=== PATIENT | male | born 1935 | race Caucasian/White ===

== ENCOUNTER 2016-11-08 15:31 | Emergency (ER) | payer MEDICARE, BC ==
[2015-12-14 13:42] VITALS: BMI 23.0
[~2016-11-08 15:31] MED LIST: ASPIRIN81 MG PO; AUGMENTIN 875-11 TAB PO; PHENERGAN25 MG/ML IM; PLAVIX75 MG PO; PROTONIX40 MG PO
[2016-11-08 17:04] LABS: BASOPHILS 0.3 % (0.0-2.0); EOSINOPHILS 0.7 % (0-7); HEMATOCRIT 47.2 % (42.0-54.0); HEMOGLOBIN 15.9 g/dL (13.5-17.5); IMMATURE GRANULOCYTES 0.5 % (0-5); LYMPHOCYTES 12.5 % (15-50); MCH 32.6 pg (26.0-34.0); MCHC 33.7 g/dL (31.0-37.0); MCV 96.9 fL (80.0-100.0); MEAN PLATELET VOLUME 10.5 fL (7.4-10.4); MONOCYTES 8.4 % (2-11); NEUTROPHILS 77.6 % (40-80); PLATELET COUNT 186 10x3/uL (130-400); RBC 4.87 10x6/uL (4.20-6.10); RDW 12.6 % (11.5-14.5); WBC 10.7 10x3/uL (4.8-10.8)
[2016-11-08 17:13] LABS: INR 1.05 (0.85-1.17); PROTIME 13.6 SECONDS (11.6-15.0)
[2016-11-08 17:21] LABS: ALBUMIN 3.4 g/dL (3.4-5.0); ALKALINE PHOSPHATASE 101 U/L (46-116); ALT (SGPT) 18 U/L (10-68); BILIRUBIN - TOTAL 0.41 mg/dL (0.2-1.3); CALC OSMOLALITY 279 mosm/kg (275-300); CALCIUM 8.7 mg/dL (8.5-10.1); CARBON DIOXIDE 28.7 mmol/L (21.0-32.0); CHLORIDE - SERUM 104 mmol/L (98-107); CREATININE - SERUM 1.2 mg/dL (0.6-1.3); GLUCOSE 117 mg/dL (74-106); POTASSIUM - SERUM 3.9 mmol/L (3.5-5.1); PROTEIN - SERUM 6.9 g/dL (6.4-8.2); SODIUM 139 mmol/L (136-145); UREA NITROGEN 16 mg/dL (7-18); eGFR NON AFRICAN AMERICAN 62 mL/min (90-120)
[2016-11-08 17:29] LABS: APPEARANCE CLEAR (CLEAR); BILIRUBIN NEGATIVE (NEGATIVE); COLOR YELLOW (YELLOW); GLUCOSE NEGATIVE (NEGATIVE); KETONE NEGATIVE (NEGATIVE); LEUKOCYTE ESTERASE NEGATIVE (NEGATIVE); NITRITE NEGATIVE (NEGATIVE); PROTEIN NEGATIVE (NEGATIVE); UROBILINOGEN NORMAL (NORMAL)
[2016-11-08 17:33] LABS: CREATINE KINASE 55 UL (21-232); PRO BNP 250 pg/mL (0-450); TROPONIN-I < 0.017 ng/mL (0.000-0.060)
[2016-11-08 17:48] LABS: HEMOGLOBIN A1C 5.6 % (4.8-6.0)
== END 2016-11-08 20:20 | disposition home or self-care (01) ==
LOC: D.ER 15:31
PROVIDERS: Nurse Practitioner Family
DX: R42 Dizziness and giddiness (principal); Z86.73 Personal history of transient ischemic attack (TIA), and cerebral infarction without residual deficits

== ENCOUNTER 2017-04-24 18:33 | Inpatient (IN) | payer MEDICARE, BC ==
[~2017-04-24] VITALS: Ht 182.9 cm; Wt 80.7 kg
--- NOTE | ~2017-04-24 | CN ---
PATIENT NAME:JONATHON NORRIS MEDICAL RECORD: [id number] : 39 LOCATION:D. D.2123 ADMIT DATE: 04/25/17 ACCOUNT: [id number] CONSULTING PHYSICIAN: KAM STEWARD MD REFERRING PHYSICIAN: VANESSA EDMONDS MD DATE OF CONSULTATION: 04/25/2017 Cardiology Consultation DIAGNOSES: 1. Transient ischemic attack. 2. History of transient ischemic attacks. 3. Valvular heart disease, mitral regurgitation. HISTORY OF PRESENT ILLNESS: Mr. Norris was admitted with right-sided weakness. This has resolved. He has a history of TIAs for which he was on Plavix. Dr. Forde has seen him suggested adding aspirin to the Plavix. He has had heart rates in the 50s, but no significant bradycardia. No chest pain, no chest discomfort. Troponin is normal. PHYSICAL EXAMINATION: GENERAL APPEARANCE: Well-nourished, well-developed, appears stated age. Level of distress, comfortable. PSYCHIATRIC: Mental status, alert, normal affect. Orientation, oriented to time, place and person. EYES: Lids and conjunctiva, noninjected. No discharge, no pallor. ENT: Lips, teeth, gums, normal dentition. Oropharynx, no cyanosis, no pallor. NECK: Carotid arteries, bilateral normal upstroke, no bruits, no thrills. JUGULAR VEINS: No jugular venous pressure or distention. CERVICAL LYMPH NODES: Nontender, nonenlarged. THYROID: Not enlarged. Nontender. No nodules. LUNGS: Respiratory effort, unlabored. CHEST: Normal curvature. No thoracic deformity. No chest wall tenderness. Percussion, resonant. Auscultation, clear. No wheezes, no rales, no rhonchi. CARDIOVASCULAR: Precordial exam, nondisplaced. No heaves or pericardial thrills. Rate and rhythm, regular. Heart sounds, normal S1, normal S2. No S3, no gallop, no rub. Systolic murmur, not heard. Diastolic murmur, not heard. EXTREMITIES: No cyanosis, no edema. Peripheral pulses, full and equal in all extremities, except as noted. No bruits appreciated. ABDOMEN: Soft, nondistended. Normal aorta. No bruit. Nontender. No masses. Liver, nontender, no hepatomegaly. Spleen, nontender, no splenomegaly. MUSCULOSKELETAL: No joint tenderness. No joint swelling. No erythema. NEUROLOGICAL: Normal gait, normal strength, normal tone. SKIN: Warm and dry. Echocardiogram was performed. He has not had a cardiac source nor neurologic emboli in the past. Most likely this is just TIA from a primary thrombotic event. I agree with adding the aspirin to the Plavix. We will check the echocardiogram, no other cardiac workup or treatment is necessary. TRANSINT:[id number] Voice Confirmation ID: [id number] DOCUMENT ID: [id number] CONSULT REPORT [id number] JONATHON NORRIS JEFFREY MD CC: [id number] DICTATION DATE: 04/25/17 1504 HOME WEATHERIZING WORKER: 04/25/171958 ADM IN [place] [id number] [place] [id number]
--- NOTE | ~2017-04-24 | EC ---
PATIENT:RALJESSICA,JONATHON DATE OF SERVICE: 04/25/17 SEX: M MEDICAL RECORD: [id number] DATE OF : 39 LOCATION:D.M2 D.212 AGE OF PATIENT: 82 ADMISSION DATE: 04/25/17 REFERRING PHYSICIAN: INTERPRETING PHYSICIAN: KAM HOLLOWAY MD ECHOCARDIOGRAM REPORT ECHO CHARGES 4 ECHO COMPLETE CLINICAL DIAGNOSIS: LEFT MCA TIA ECHOCARDIOGRAPHIC MEASUREMENTS (adult normal given) AC root (d.<3.7cm) 4.4 cm LV Septum d (<1.2 cm> 1.3 cm Valve Excursion 2.6 cm LV Septum (systole) 2.2 cm Left Atria (s.<4.0cm> 3.5 cm LVPW d(<1.2cm) 1.2 cm RV (d.<2.3cm) 2.5 cm LVPW (sytole) 2.0 cm LV diastole(<5.6CM) 5.5 cm MV E-F(>70mm/sec) cm LV systole 2.6 cm LVOT Diameter 2.2 cm MV exc.(>10mm) cm Est.ejection fraction (50-75%) % Pericardial Effusion N DOPPLER: LVIT cm/sec A 100 cm/sec E 50.0 cm/sec LA cm/sec RVSP 30.1 mmHg LVOT 131 cm/sec AOP1/2T m/s Asc. Ao 131 cm/sec RVOT 65.0 cm/sec RA cm/sec PA 95.0 cm/sec AV Gradient Peak 6.9 mmHg AV Mean 3.3 mmHg AV Area 3.5 cm MV Gradient Peak 4.2 mmHg MV Mean 1.3 mmHg MV Area cm COMMENTS: Handwriting Expert: Mirlande VALLADARESOE Ultrasound Tester: 1 Dr. Holloway TAPE# PACS DATE OF SERVICE: 04/26/2017 Echocardiogram FINDINGS: 1. Left ventricular chamber size is within normal limits. Left ventricular systolic function is normal. Overall ejection fraction estimated at 55%. 2. Left atrium, right atrium, and right ventricle chamber sizes are within normal limits. 3. Valvular structures have normal structure and motion. ECHOCARDIOGRAM REPORT [id number] RALSTIN,JONATHON 4. Doppler interrogation only reveals mild aortic insufficiency. No other valvular insufficiency or stenosis. Pulmonary systolic pressure is normal estimated at 30 mmHg. 5. No evidence of pericardial effusion or left ventricular thrombus. TRANSINT:[id number] Voice Confirmation ID: [id number] DOCUMENT ID: [id number] KAM HOLLOWAY MD CC: [id number] DICTATION DATE: 04/26/17 1229 FOLLOW UP CLERK: 04/26/172003 DIS IN 04/26/17 [facility] [address] [place] [id number]
[2017-04-24 19:01] LABS: EOSINOPHILS 3.9 % (0-7); HEMATOCRIT 47.4 % (42.0-54.0); HEMOGLOBIN 16.4 g/dL (13.5-17.5); IMMATURE GRANULOCYTES 0.7 % (0-5); LYMPHOCYTES 45.4 % (15-50); MCH 33.4 pg (26.0-34.0); MCHC 34.6 g/dL (31.0-37.0); MCV 96.5 fL (80.0-100.0); MEAN PLATELET VOLUME 10.5 fL (7.4-10.4); MONOCYTES 11.6 % (2-11); NEUTROPHILS 37.4 % (40-80); PLATELET COUNT 187 10x3/uL (130-400); RBC 4.91 10x6/uL (4.20-6.10); RDW 12.9 % (11.5-14.5)
[2017-04-24 19:33] LABS: APTT 25.5 SECONDS (22.8-39.4)
[2017-04-24 19:37] LABS: ALBUMIN 3.3 g/dL (3.4-5.0); ANION GAP 12.7 mmol/L (8-16); BILIRUBIN - TOTAL 0.4 mg/dL (0.2-1.3); CALCIUM 8.2 mg/dL (8.5-10.1); CARBON DIOXIDE 27.5 mmol/L (21.0-32.0); CREATININE - SERUM 1.2 mg/dL (0.6-1.3); POTASSIUM - SERUM 4.2 mmol/L (3.5-5.1); PROTEIN - SERUM 6.7 g/dL (6.4-8.2)
[2017-04-24 19:58] LABS: CKMB 0.2 U/L (0.0-3.6); CREATINE KINASE 59 UL (21-232)
[2017-04-24 20:00] LABS: TROPONIN-I < 0.017 ng/mL (0.000-0.060)
[2017-04-24 21:38] LABS: CREATINE KINASE 133 UL (21-232)
[2017-04-24 21:46] LABS: TROPONIN-I < 0.017 ng/mL (0.000-0.060)
--- NOTE | 2017-04-24 22:00 | NUR ---
PT ARRIVES FROM ER VIA STRETCHER, GETS OOB WITH SBA ONLY - AMBULATES WITH A STEADY GAIT TO THE BATHROOM AND THEN INTO BED. NO NEURO DEFICITS NOTED UPON ASSESSMENT. VSS, AFEBRILE. ADMISSION HISTORY AND ASSESSMENT COMPLETED. UNIT ROUTINES AND PROTOCOLS DISCUSSED, PT VERBALIZES UNDERSTANDING. WILL CONT TO MONITOR.
[2017-04-24 22:19] VITALS: BMI 25.1
[2017-04-24 23:05] LABS: APPEARANCE CLEAR (CLEAR); COLOR YELLOW (YELLOW)
[2017-04-24 23:06] LABS: BILIRUBIN NEGATIVE (NEGATIVE); GLUCOSE NEGATIVE (NEGATIVE); KETONE NEGATIVE (NEGATIVE); LEUKOCYTE ESTERASE NEGATIVE (NEGATIVE); NITRITE NEGATIVE (NEGATIVE); PROTEIN NEGATIVE (NEGATIVE); UROBILINOGEN NORMAL (NORMAL)
[2017-04-25 01:39] VITALS: BP 166/93
[2017-04-25 05:01] LABS: CKMB 2.9 U/L (0.0-3.6); CREATINE KINASE 186 UL (21-232)
[2017-04-25 05:02] LABS: TROPONIN-I < 0.017 ng/mL (0.000-0.060)
[2017-04-25 05:32] VITALS: BP 149/85
--- NOTE | 2017-04-25 06:57 | NUR ---
PT RESTS WELL THIS SHIFT. NO CHANGES NOTED IN NEURO STATUS. WILL MONITOR.
[2017-04-25 09:38] VITALS: BP 168/84
--- NOTE | 2017-04-25 10:00 | NUR ---
RESP UL ON . AT BS. CALL LIGHT IN REACH. WILL CONT. PLAN OF CARE.
[2017-04-25 10:39] LABS: CKMB 1.8 U/L (0.0-3.6); CREATINE KINASE 171 UL (21-232)
[2017-04-25 10:41] LABS: TROPONIN-I < 0.017 ng/mL (0.000-0.060)
[2017-04-25 12:17] VITALS: BP 147/80
[2017-04-25 16:00] VITALS: BP 124/83
--- NOTE | 2017-04-25 17:26 | NUR ---
WITHOUT CHANGES OR DISTRESS NOTED AT THIS TIME. DENIES NEEDS.
--- NOTE | 2017-04-25 19:00 | NUR ---
RECEIVED REPORT AND ASSUMED PT CARE FROM DAY SHIFT NURSE @ THIS TIME.
[2017-04-25 20:00] VITALS: BP 158/87
--- NOTE | 2017-04-25 20:15 | NUR ---
SHIFT ASSESSMENT COMPLETED, VSS, AFEBRILE. CONT TO BE WITHOUT NEURO DEFICITS NOTED. call light within reach. will monitor
[2017-04-26] VITALS: BP 127/75
[2017-04-26 05:24] VITALS: BP 156/84
[2017-04-26 05:48] LABS: BASOPHILS 0.3 % (0-2); EOSINOPHILS 4.1 % (0-7); HEMATOCRIT 46.8 % (42.0-54.0); HEMOGLOBIN 15.9 g/dL (13.5-17.5); IMMATURE GRANULOCYTES 0.2 % (0-5); LYMPHOCYTES 26.1 % (15-50); MCV 97.1 fL (80.0-100.0); MEAN PLATELET VOLUME 10.3 fL (7.4-10.4); MONOCYTES 14.1 % (2-11); NEUTROPHILS 55.2 % (40-80); PLATELET COUNT 181 10x3/uL (130-400); RBC 4.82 10x6/uL (4.20-6.10); RDW 12.8 % (11.5-14.5); WBC 6.1 10x3/uL (4.8-10.8)
[2017-04-26 06:05] LABS: CALCIUM 8.2 mg/dL (8.5-10.1); CARBON DIOXIDE 30.1 mmol/L (21.0-32.0); CREATININE - SERUM 1.3 mg/dL (0.6-1.3); POTASSIUM - SERUM 4.1 mmol/L (3.5-5.1)
--- NOTE | 2017-04-26 07:38 | NUR ---
ASSESSMENT DONE. DENIES NEEDS.
[2017-04-26 08:00] VITALS: BP 162/94
--- NOTE | 2017-04-26 09:24 | NUR ---
UP IN CHAIT WITH CALL LIGHT IN REACH. WILL MONITOR NEEDS.
[2017-04-26 11:52] VITALS: BP 133/69
[2017-04-26] MEDS ORDERED: ASPIRIN81 MG PO (13:01)
[2017-04-26 13:03] VITALS: Ht 182.9 cm; Wt 80.7 kg
--- NOTE | 2017-04-26 14:04 | NUR ---
DC GIVEN TO PT
--- NOTE | 2017-04-26 14:11 | NUR ---
DC HOME PER PERSONAL CAR
--- NOTE | 2017-04-26 16:35 | NUR ---
Patient Name: JONATHON SHEEHAN Admission Status: ER Accout number: [id number] Admission Date: 04-25-2017 : 1935 Admission Diagnosis:TRANSIENT CEREBRAL ISCHEMIC ATTACK, UNSPECIFIED Attending: ADRIÁN Current LOS: 1 Anticipated DC Date: 04-26-2017 Planned Disposition: Home Primary Insurance: MEDICARE A & B LATE ENTRY: Discharge Planning Comments: * Is the patient Alert and Oriented? Yes 0 * How many steps to enter\exit or inside your home? NONE 0 * PCP DR. DELANEY 0 * Pharmacy [facility] BY MARLENI BARNETT 0 * Preadmission Environment Home with Family 0 * ADLs Independent 0 * Equipment None 0 * Other Equipment NO MEDICAL EQUIPMENT PROVIDER PREFERENCE 0 * List name and contact numbers for known caregivers / representatives who currently or will assist patient after discharge: MICHI SHEEHAN, SPOUSE, 0 * Community resources currently utilized None 0 * Please name any agencies selected above. NONE 0 * Additional services required to return to the preadmission environment? No 0 * Can the patient safely return to the preadmission environment? Yes 0 * Has this patient been hospitalized within the prior 30 days at any hospital? No 0 CM MET WITH PT AND SPOUSE IN ROOM TO DISCUSS DISCHARGE PLANNING AND NEEDS. PT REPORTS LIVING AT HOME INDEPENDENTLY WITH SPOUSE. PT HAS NO MEDICAL EQUIPMENT AND NO OUTSIDE SERVICES ASSISTING IN THE HOME. CM DISCUSSED AVAILABILITY OF HOME HEALTH, REHAB SERVICES AND MEDICAL EQUIPMENT. PT DENIES DISCHARGE NEEDS, REPORTS HIS IS HERE TO PICK HIM UP FOR DISCHARGE HOME. Golf Course Laborer: Cameron Portillo
== END 2017-04-26 14:12 | disposition home or self-care (01) | DRG 68 ==
LOC: D.ER 18:33 → OBSVTIME 21:10 → D.M2 21:10 → D.SDCHOLD 04-25 17:10 → D.M2 04-25 17:12
PROVIDERS: Emergency Medicine; Family Medicine; ADMIT Family Medicine
DX: I66.02 Occlusion and stenosis of left middle cerebral artery (principal); G81.94 Hemiplegia, unspecified affecting left nondominant side; S06.0X9A Concussion with loss of consciousness of unspecified duration, initial encounter; I34.0 Nonrheumatic mitral (valve) insufficiency; W07.XXXA Fall from chair, initial encounter; Z86.73 Personal history of transient ischemic attack (TIA), and cerebral infarction without residual deficits

== ENCOUNTER 2017-10-25 20:35 | Emergency (ER) | payer MEDICARE, BC ==
[2017-04-26 13:03] VITALS: BMI 24.1
== END 2017-10-26 00:10 | disposition home or self-care (01) ==
LOC: D.ER 20:35
DX: S20.219A Contusion of unspecified front wall of thorax, initial encounter (principal); V49.9XXA Car occupant (driver) (passenger) injured in unspecified traffic accident, initial encounter; Y93.89 Activity, other specified; Y92.89 Other specified places as the place of occurrence of the external cause; S22.009A Unspecified fracture of unspecified thoracic vertebra, initial encounter for closed fracture

== ENCOUNTER 2020-02-18 16:20 | Inpatient (IN) | payer MEDICARE, BC ==
[~2020-02-18] VITALS: Ht 182.9 cm; Wt 213.4 kg
[2020-02-18 17:43] LABS: APTT 29.2 SECONDS (22.8-39.4); INR 1.1 (0.85-1.17); PROTIME 14.1 SECONDS (11.6-15.0)
[2020-02-18 17:46] LABS: ANION GAP 12.6 mmol/L (8-16); CALCIUM 8.5 mg/dL (8.5-10.1); CARBON DIOXIDE 27.1 mmol/L (21.0-32.0); CREATININE - SERUM 1.3 mg/dL (0.6-1.3); POTASSIUM - SERUM 3.7 mmol/L (3.5-5.1)
[2020-02-18 17:49] LABS: BASOPHILS 0.7 % (0-2); EOSINOPHILS 0.3 % (0-7); HEMATOCRIT 51.3 % (42.0-54.0); IMMATURE GRANULOCYTES 0.2 % (0-5); LYMPHOCYTES 21.5 % (15-50); MCH 31.5 pg (26.0-34.0); MCHC 33.1 g/dL (31.0-37.0); MEAN PLATELET VOLUME 10.3 fL (7.4-10.4); MONOCYTES 11.8 % (2-11); NEUTROPHILS 65.5 % (40-80); PLATELET COUNT 217 10x3/uL (130-400); RDW 13.5 % (11.5-14.5); WBC 6.1 10x3/uL (4.8-10.8)
[2020-02-18 17:52] LABS: ALBUMIN 3.6 g/dL (3.4-5.0); BILIRUBIN - TOTAL 0.75 mg/dL (0.2-1.3); PROTEIN - SERUM 7.2 g/dL (6.4-8.2)
[2020-02-18 17:58] VITALS: BP 165/90; BMI 23.8
[2020-02-18 18:09] LABS: CKMB 0.3 U/L (0.0-3.6); CREATINE KINASE 46 UL (21-232); TROPONIN-I 0.027 ng/mL (0.000-0.060)
[2020-02-18 20:00] VITALS: BP 146/88
--- NOTE | 2020-02-18 20:00 | NUR ---
PATIENT IS IN BED WITH EYES OPEN. NO S/S OF ACUTE DISTRESS. NO C/O AT THIS TIME. PATIENT IS SLIGHTLY CONFUSED ESPECIALLY WHEN HE FIRST WAKES UP. PATIENT IS ON TELEMETRY. PATIENT HAS RIGHT FOREARM, NORMAL SALINE @ 75 ML/HR. IV IS PATENT WITHOUT REDNESS, SWELLING, OR TENDERNSS. PATIENT IS UP WITH ASSIST TO BATHROOM. CALL LIGHT WITHIN REACH. BED ALARM ON. WILL CONTINUE TO MONITOR.
[2020-02-19 01:21] LABS: CKMB 0.5 U/L (0.0-3.6); CREATINE KINASE 52 UL (21-232); TROPONIN-I 0.028 ng/mL (0.000-0.060)
--- NOTE | 2020-02-19 02:12 | NUR ---
I have reviewed this patient and I concur with the Shift Assessment completed by the Licensed Practical Nurse today this shift.
[2020-02-19 04:00] VITALS: BP 138/84
[2020-02-19 07:34] LABS: CALC OSMOLALITY 279 mosm/kg (275-300); CALCIUM 8.4 mg/dL (8.5-10.1); CHLORIDE - SERUM 106 mmol/L (98-107); CHOL - HDL RATIO 4.7 ratio (2.3-4.9); CHOLESTEROL, TOTAL 154 mg/dL (0-200); CKMB 0.3 U/L (0.0-3.6); CREATINE KINASE 50 UL (21-232); CREATININE - SERUM 1.2 mg/dL (0.6-1.3); GLUCOSE 94 mg/dL (74-106); HDL CHOLESTEROL 33 mg/dL (32-96); LDL CHOLESTEROL 105 mg/dL (0-100); LDL-HDL RATIO 3.2 ratio (1.5-3.5); MAGNESIUM - SERUM 2.2 mg/dL (1.8-2.4); PHOSPHOROUS 3.3 mg/dL (2.5-4.9); SODIUM 140 mmol/L (136-145); TRIGLYCERIDE 83 mg/dL (30-200); TROPONIN-I 0.021 ng/mL (0.000-0.060); UREA NITROGEN 15 mg/dL (7-18); eGFR NON AFRICAN AMERICAN 61 mL/min (90-120)
[2020-02-19 07:36] LABS: BASOPHILS 1.1 % (0-2); EOSINOPHILS 2.6 % (0-7); HEMATOCRIT 48.7 % (42.0-54.0); HEMOGLOBIN 16.1 g/dL (13.5-17.5); IMMATURE GRANULOCYTES 0.4 % (0-5); LYMPHOCYTES 28.5 % (15-50); MCH 31.1 pg (26.0-34.0); MCHC 33.1 g/dL (31.0-37.0); MEAN PLATELET VOLUME 10.4 fL (7.4-10.4); MONOCYTES 14.6 % (2-11); NEUTROPHILS 52.8 % (40-80); PLATELET COUNT 216 10x3/uL (130-400); RBC 5.18 10x6/uL (4.20-6.10); RDW 13.3 % (11.5-14.5); WBC 5.3 10x3/uL (4.8-10.8)
--- NOTE | 2020-02-19 07:51 | NUR ---
HE IS ALERT, HE HAS EQUAL HAND STRENGTHS, NO SIGHS OF A STROKE. THE CALL LIGHT IS WITHIN REACH.
[2020-02-19 08:00] VITALS: BP 159/88
--- NOTE | 2020-02-19 10:15 | NUR ---
Rehab Prescreening Consult recieved and the chart has been reviewed. He meets criteria for the ARU, but still has a neuro, ST, and PT eval pending. Will discuss in the IDT thim morning. Lauryn Moore RN Clinical Liaison, Rehab
[2020-02-19 12:00] VITALS: BP 143/87
[2020-02-19 12:52] VITALS: Ht 182.9 cm; Wt 213.4 kg
[2020-02-19 16:00] VITALS: BP 139/81
[2020-02-19 17:02] LABS: BILIRUBIN NEGATIVE (NEGATIVE); GLUCOSE NEGATIVE (NEGATIVE); KETONE NEGATIVE (NEGATIVE); NITRITE NEGATIVE (NEGATIVE); UROBILINOGEN NORMAL (NORMAL)
[2020-02-19 20:00] VITALS: BP 118/66
--- NOTE | 2020-02-20 02:51 | NUR ---
REMAINS ON ROOM AIR . IV IN PLACE AND PATEN WITH NS AT 30ML/HR. CALL LIGHT IN REACH TRYES TO GET OUT OF BED MULTABLE TIMES. TAKES OFF O2 MULTABLE TIMES THIS SHAFT.
[2020-02-20 07:01] LABS: BASOPHILS 0.8 % (0-2); HEMATOCRIT 48.3 % (42.0-54.0); IMMATURE GRANULOCYTES 0.3 % (0-5); LYMPHOCYTES 32.3 % (15-50); MCH 31.3 pg (26.0-34.0); MCHC 33.1 g/dL (31.0-37.0); MCV 94.3 fL (80.0-100.0); MEAN PLATELET VOLUME 10.3 fL (7.4-10.4); MONOCYTES 11.7 % (2-11); NEUTROPHILS 51.9 % (40-80); PLATELET COUNT 216 10x3/uL (130-400); RBC 5.12 10x6/uL (4.20-6.10); RDW 13.2 % (11.5-14.5); WBC 5.9 10x3/uL (4.8-10.8)
[2020-02-20 07:13] LABS: ANION GAP 10.3 mmol/L (8-16); CALCIUM 8.3 mg/dL (8.5-10.1); CARBON DIOXIDE 26.6 mmol/L (21.0-32.0); CREATININE - SERUM 1.1 mg/dL (0.6-1.3); MAGNESIUM - SERUM 2.1 mg/dL (1.8-2.4); PHOSPHOROUS 3.2 mg/dL (2.5-4.9); POTASSIUM - SERUM 3.9 mmol/L (3.5-5.1)
[2020-02-20 08:00] VITALS: BP 148/70
--- NOTE | 2020-02-20 09:12 | NUR ---
PT ALERT AND RECLINED IN BED UPON ENTERING, FAMILY AT BEDSIDE. VITALS ASSESSED, VSS. MEDICATION GIVEN AT THIS TIME, DIFFICULTIES. PT IS RESTING IN BED. DENIES ANY NEEDS. BED IN LOWEST POSITION, BED RAILS X3, CALL LIGHT WITHIN REACH. WILL CONTINUE TO MONITOR.
[2020-02-20 10:41] VITALS: BP 148/710
[2020-02-20 12:49] VITALS: BP 148/92
--- NOTE | 2020-02-20 16:18 | NUR ---
I have reviewed this patient and I concur with the Shift Assessment completed by the Licensed Practical Nurse today this shift.
[2020-02-20 17:25] VITALS: BP 143/66
[2020-02-20 20:00] VITALS: BP 147/78
--- NOTE | 2020-02-20 20:00 | NUR ---
PATIENT RESTING IN BED WITH EYES OPEN. NO S/S OF ACUTE DISTRESS. NO C/O AT THIS TIME. PATIENT SEEMS FRUSTRATED, AND ANXIOUS, BECUASE "MY BRAIN DOESN'T WANT TO WORK". I ENCOURAGED THE PATIENT TO TAKE HIS TIME, AND THAT SEEMED TO HELP HIM COMMUNICATE WHAT HE WANTED EASIER. PATIENT IS CONFUSED TO SITUATION AND TIME. PATIENT IS ON 4L O2 NASAL CANNULA. PATIENT HAS RIGHT FOREARM IV, NORMAL SALINE @ 20 ML/HR. IV IS PATENT WITHOUT REDNESS, SWELLING, OR TENDERNESS. PATIENT HAS TELEMETRY ON: 85 NORMAL SINUS. PATIENT AMBULATES TO THE BATHROOM WITH MINIMAL ASSISTANCE. CALL LIGHT WITHIN REACH. BED ALARM ON. WILL CONTINUE TO MONITOR.
--- NOTE | 2020-02-20 21:02 | NUR ---
UPON ENTERING THE ROOM TO ANSWER THE CALL LIGHT, PATIENT WAS SITTING ON EDGE OF BED HOLDING IV IN LEFT HAND. RIGHT ARM WAS BLEEDING, CATHETER TIP WAS INTACT. PATIENT STATED "IT WAS GETTING IN MY WAY TO TURN ON THE TV." PATIENT INSTRUCTED IN HOW TO USE THE TV BUTTON ON THE CALL LIGHT. CALL LIGHT WITHIN REACH. BED ALARM ON. WILL CONTINUE TO MONITOR.
--- NOTE | 2020-02-20 21:40 | NUR ---
I RESITED PATIENT'S IV IN LEFT FOREARM. IV IS PATENT WITHOUT REDNESS, SWELLING, OR TENDERNESS. CALL LIGHT WITHIN REACH. BED ALARM ON. WILL CONTINUE TO MONITOR.
[2020-02-21] VITALS: BP 158/72
--- NOTE | 2020-02-21 00:10 | NUR ---
PATIENT RIPPED IV IN LEFT FOREARM OUT BECAUSE "I PUT IT ON THE WRONG SIDE". CATHETER TIP INTACT. CALL LIGHT WITHIN REACH. BED ALARM ON. WILL CONTINUE TO MONITOR.
--- NOTE | 2020-02-21 01:35 | NUR ---
I have reviewed this patient and I concur with the Shift Assessment completed by the Licensed Practical Nurse today this shift.
[2020-02-21 04:00] VITALS: BP 131/72
[2020-02-21 06:56] LABS: BASOPHILS 0.8 % (0-2); EOSINOPHILS 4.1 % (0-7); HEMATOCRIT 48.8 % (42.0-54.0); HEMOGLOBIN 15.9 g/dL (13.5-17.5); IMMATURE GRANULOCYTES 0.2 % (0-5); LYMPHOCYTES 25.6 % (15-50); MCH 30.9 pg (26.0-34.0); MCHC 32.6 g/dL (31.0-37.0); MCV 94.9 fL (80.0-100.0); MEAN PLATELET VOLUME 10.5 fL (7.4-10.4); MONOCYTES 11.1 % (2-11); NEUTROPHILS 58.2 % (40-80); PLATELET COUNT 215 10x3/uL (130-400); RBC 5.14 10x6/uL (4.20-6.10); RDW 13.3 % (11.5-14.5); WBC 6.4 10x3/uL (4.8-10.8)
[2020-02-21 07:13] LABS: CALC OSMOLALITY 277 mosm/kg (275-300); CALCIUM 8.3 mg/dL (8.5-10.1); CARBON DIOXIDE 23.2 mmol/L (21.0-32.0); CHLORIDE - SERUM 107 mmol/L (98-107); CREATININE - SERUM 0.9 mg/dL (0.6-1.3); GLUCOSE 91 mg/dL (74-106); PHOSPHOROUS 3.3 mg/dL (2.5-4.9); POTASSIUM - SERUM 3.6 mmol/L (3.5-5.1); SODIUM 140 mmol/L (136-145); UREA NITROGEN 9 mg/dL (7-18); eGFR NON AFRICAN AMERICAN 86 mL/min (90-120)
[2020-02-21 08:00] VITALS: BP 153/80
--- NOTE | 2020-02-21 08:00 | NUR ---
ALERT AND ORIETNED TO PERSON, PLACE BUT WNABLE TO IDENTIFY PRESIDENT. FALL PRECAUTIONS IN PLACE. ENCOURAGED TO USE CALL LIGHT FOR ASSSIT. NO ASSSIT NEEDED WITH BREAKFAST. TELEMETRY INTACT. REFUSES SCD'S AT THIS TIME. DENIES ANY PAIN OR DISCOMFORT AT THIS TIME.
[2020-02-21 12:17] VITALS: BP 142/74
[2020-02-21 20:00] VITALS: BP 151/80
[2020-02-22 04:00] VITALS: BP 176/99
[2020-02-22 05:51] LABS: ANION GAP 9.8 mmol/L (8-16); CALCIUM 8.1 mg/dL (8.5-10.1); CARBON DIOXIDE 26.8 mmol/L (21.0-32.0); CREATININE - SERUM 1.1 mg/dL (0.6-1.3); MAGNESIUM - SERUM 2.1 mg/dL (1.8-2.4); PHOSPHOROUS 2.9 mg/dL (2.5-4.9); POTASSIUM - SERUM 3.6 mmol/L (3.5-5.1)
[2020-02-22 05:53] LABS: BASOPHILS 0.7 % (0-2); EOSINOPHILS 4.5 % (0-7); HEMATOCRIT 48.3 % (42.0-54.0); HEMOGLOBIN 15.6 g/dL (13.5-17.5); IMMATURE GRANULOCYTES 0.3 % (0-5); LYMPHOCYTES 24.5 % (15-50); MCH 30.6 pg (26.0-34.0); MCHC 32.3 g/dL (31.0-37.0); MCV 94.7 fL (80.0-100.0); MEAN PLATELET VOLUME 10.4 fL (7.4-10.4); MONOCYTES 11.6 % (2-11); NEUTROPHILS 58.4 % (40-80); PLATELET COUNT 207 10x3/uL (130-400); RDW 13.3 % (11.5-14.5)
--- NOTE | 2020-02-22 08:00 | NUR ---
HE CAN NOT THINK OF THE NAME OF THE PRESIDENT, HE DID KNOW HE IS AT THE HOSPITAL. THE BED ALARM IS ON, THE CALL LIHGT IS WITHIN REACH. HE DENIES ANY PAIN.
[2020-02-22 08:25] VITALS: BP 169/90
--- NOTE | 2020-02-22 10:06 | NUR ---
This patient meets criteria and will be accepted if he is agreeable to participate in the program. Discussed with the CM Stephanie Duncan RN this morning, he has not been seen by PT since the evaluation on 02/20/20 when he ambulated 10 ft. Will accept today if physician and patient agree. Lauryn NERI Clinical Liaison, Rehab
[2020-02-22 12:17] VITALS: BP 162/90
--- NOTE | 2020-02-22 14:47 | NUR ---
Nutrition follow-up: Pt sitting on the side of bed eating lunch at time of RDN visit. Pt reports good appetite. Continues with no issues chewing or swallowing Diet: low sodium PO intake ~75% of meals Labs reviewed Wt: 170# Will continue to provide food choices and honor food preferences. RDN following.
[2020-02-22] MEDS ORDERED: AGGRENOX 200/251 CAP PO (15:40)
[2020-02-22] MEDS ORDERED: ALBUTEROL1.25 MG/3 UPD (15:40)
[2020-02-22] MEDS ORDERED: LIPITOR20 MG PO (15:40)
--- NOTE | 2020-02-22 16:03 | MORECARE ---
CASE MANAGEMENT DISCHARGE SUMMARY PATIENT: JONATHON SHEEHAN UNIT: [id number] ADM DATE: 02/18/20 AGE: 84 : 37 SEX: M ROOM/BED: D.2233 AUTHOR: LEATHA RIBERA PHYSICIAN: REFERRING PHYSICIAN: TELMA DELANEY MD DATE OF SERVICE: 02/22/20 Discharge Plan Patient Name: JONATHON SHEEHAN Facility: [facility]:[place] : 1935 Planned Disposition: Home Anticipated Discharge Date: Discharge Date: Expected LOS: Initial Reviewer: [email or web address] Initial Review Date: 02/22/2020 Generated: 02/22/20 5:02 pm Patient Name: JONATHON SHEEHAN Page [phone] at 1603 All edits/amendments must be made on the electronic document DICTATION DATE: 02/22/201601 BRADDER: MARÍA 02/22/20 160 RPT#: [id number] DC DATE: STATUS: ADM IN [facility] [address] [place] [address] END OF REPORT
--- NOTE | 2020-02-22 16:12 | MORECARE ---
CASE MANAGEMENT DISCHARGE SUMMARY PATIENT: JONATHON SHEEHAN UNIT: [id number] ADM DATE: 02/18/20 AGE: 84 : 37 SEX: M ROOM/BED: D.2233 AUTHOR: BACILIO,DOC PHYSICIAN: REFERRING PHYSICIAN: TELMA DELANEY MD DATE OF SERVICE: 02/22/20 Discharge Plan Patient Name: JONATHON SHEEHAN Facility: [facility]:[place] : 1935 Planned Disposition: Inpatient Rehab Anticipated Discharge Date: Discharge Date: Expected LOS: Initial Reviewer: [email or web address] Initial Review Date: 02/22/2020 Generated: 02/22/20 5:11 pm Comments DCP- Discharge Planning Updated by [email or web address]: Stephanie Duncan on 02/22/20 3:[address] Patient Name: JONATHON SHEEHAN Admission Status: Elective Accout number: [id number] Admission Date: 02-18-2020 : 1935 Admission Diagnosis: Attending: TELMA DELANEY Current LOS: 4 Anticipated DC Date: Planned Disposition: Inpatient Rehab Primary Insurance: MEDICARE A & B Discharge Planning Comments: CM met with patient at bedside after explaining CM role and obtaining verbal consent. CM discussed availability / needs of home health, REHAB and medical equipment. I SPOKE WITH HIS MICHI AND HE HAS A CANE AND WALKER AT HOME. PLAN IS TO DC TO [facility] TODAY. IMM SIGNED. Cryogenics Repairer: Stephanie Duncan DCPIA - Discharge Planning Initial Assessment Updated by [id number]: Stephanie Duncan on 02/22/20 4:05 pm * Is the patient Alert and Oriented? Yes * PCP RHETT * Preadmission Environment Home with Family * ADLs Independent * Other Equipment NONE * Community resources currently utilized None * Additional services required to return to the preadmission environment? Yes * Can the patient safely return to the preadmission environment? No * Has this patient been hospitalized within the prior 30 days at any hospital? No Coverage Notice Reviewer: [id number] - Stephanie Duncan Notice Issued Date-Time: 02/22/2020 16:07 Notice Type: IM Discharge Notice Notice Delivered To: Patient Relationship to Patient: Enrollment Management Director Name: Delivery Method: HAND - Hand Delivered April Days: Prior Verbal Notification: Recipient Understood Notice: Yes Recipient Signature: Yes Med Rec Note Co-signed by Attending: Coverage Notice Comment: Reviewer: [id number] - Stephanie Duncan Notice Issued Date-Time: 02/22/2020 16:07 Notice Type: Patient Choice Letter Notice Delivered To: Family Member Relationship to Patient: Spouse Enrollment Management Director Name: MICHI Delivery Method: PHONE - Phone April Days: Prior Verbal Notification: Recipient Understood Notice: Recipient Signature: Med Rec Note Co-signed by Attending: Coverage Notice Comment: JAZ PETERSON Last DP export: 02/22/20 3:03 pm Patient Name: JONATHON SHEEHAN Page [phone] at 1612 All edits/amendments must be made on the electronic document DICTATION DATE: 02/22/20 161 SHANK CUTTER: MARÍA 02/22/20 161 RPT#: [id number] DC DATE: STATUS: ADM IN [facility] [address] [place] [address] END OF REPORT
[2020-02-22 16:59] VITALS: BP 128/77
--- NOTE | 2020-02-22 17:16 | NUR ---
ATTEMPTED TO CALL REPORT, BUT REHAB SAYS THEY WILL HAVE TO CALL ME BACK.
--- NOTE | 2020-02-22 18:18 | NUR ---
REPORT CALLED TO [facility] LIMA ON REHAB UNIT. IV REMOVED.
--- NOTE | 2020-02-22 18:38 | NUR ---
TELE SENT BACK TO [facility]. TAKEN DOWN TO REHAB VIA WHEELCHAIR.
--- NOTE | 2020-02-23 09:25 | MORECARE ---
CASE MANAGEMENT DISCHARGE SUMMARY PATIENT: JONATHON SHEEHAN UNIT: [id number] ADM DATE: 02/18/20 AGE: 84 : 37 SEX: M ROOM/BED: D.2233 AUTHOR: BACILIO,DOC PHYSICIAN: REFERRING PHYSICIAN: TELMA DELANEY MD DATE OF SERVICE: 02/23/20 Discharge Plan Patient Name: JONATHON SHEEHAN Facility: [facility]:[place] : 1935 Planned Disposition: Inpatient Rehab Anticipated Discharge Date: Discharge Date: 02/22/2020 Expected LOS: Initial Reviewer: [email or web address] Initial Review Date: 02/22/2020 Generated: 02/23/20 10:24 am Comments DCP- Discharge Planning Updated by [id number]: Stephanie Duncan on 02/22/20 3:[address] Patient Name: JONATHON SHEEHAN Admission Status: Elective Accout number: [id number] Admission Date: 02-18-2020 : 1935 Admission Diagnosis: Attending: TELMA DELANEY Current LOS: 4 Anticipated DC Date: Planned Disposition: Inpatient Rehab Primary Insurance: MEDICARE A & B Discharge Planning Comments: CM met with patient at bedside after explaining CM role and obtaining verbal consent. CM discussed availability / needs of home health, REHAB and medical equipment. I SPOKE WITH HIS MICHI AND HE HAS A CANE AND WALKER AT HOME. PLAN IS TO DC TO [facility] TODAY. IMM SIGNED. Cooler Deliverer: Stephanie Duncan DCPIA - Discharge Planning Initial Assessment Updated by [id number]: Stephanie Duncan on 02/22/20 4:05 pm * Is the patient Alert and Oriented? Yes * PCP RHETT * Preadmission Environment Home with Family * ADLs Independent * Other Equipment NONE * Community resources currently utilized None * Additional services required to return to the preadmission environment? Yes * Can the patient safely return to the preadmission environment? No * Has this patient been hospitalized within the prior 30 days at any hospital? No Coverage Notice Reviewer: [id number] - Stephanie Duncan Notice Issued Date-Time: 02/22/2020 16:07 Notice Type: IM Discharge Notice Notice Delivered To: Patient Relationship to Patient: Road Hogger Operator Name: Delivery Method: HAND - Hand Delivered April Days: Prior Verbal Notification: Recipient Understood Notice: Yes Recipient Signature: Yes Med Rec Note Co-signed by Attending: Coverage Notice Comment: Reviewer: [email or web address] Alma Rosa Duncan Notice Issued Date-Time: 02/22/2020 16:07 Notice Type: Patient Choice Letter Notice Delivered To: Family Member Relationship to Patient: Spouse Road Hogger Operator Name: MICHI Delivery Method: PHONE - Phone April Days: Prior Verbal Notification: Recipient Understood Notice: Recipient Signature: Med Rec Note Co-signed by Attending: Coverage Notice Comment: JAZ PETERSON Last DP export: 02/22/20 3:12 pm Patient Name: JONATHON SHEEHAN Page [id number] at 0925 All edits/amendments must be made on the electronic document DICTATION DATE: 02/23/20923 QUICKBOOKS BOOKKEEPER: MARÍA 02/23/20923 RPT#: [id number] DC DATE:02/22/20 STATUS: DIS IN [facility] [address] [place] [address] END OF REPORT
== END 2020-02-22 18:39 | DRG 64 ==
LOC: D.MS 16:20
PROVIDERS: Family Medicine; ADMIT Family Medicine; ATTEND Family Medicine
DX: I63.9 Cerebral infarction, unspecified (principal); G93.6 Cerebral edema; E78.5 Hyperlipidemia, unspecified; K21.9 Gastro-esophageal reflux disease without esophagitis

== ENCOUNTER 2020-02-22 18:39 | Inpatient (IN) | payer MEDICARE, BC ==
[~2020-02-22] VITALS: Ht 182.9 cm; Wt 79.4 kg
[~2020-02-22 18:39] MED LIST changes: +AGGRENOX 200/251 CAP PO; +ALBUTEROL1.25 MG/3 UPD; +LIPITOR20 MG PO
--- NOTE | 2020-02-22 19:30 | NUR ---
ADMIT THIS PATIENT TO ROOM 1117B FOR PHYSICAL THERAPY AND SERVICES OF DR LIZAMA. AWAKE AND ALERT. RESPIRATIONS UNLABORED. SEE ADMISSION ASSESSMENT. DX OF CVA. NO OBVIOUS DEFICITS. ORIENTED X 4. SHOWN CALL LIGHT USE. NO ACUTE DSITRESS NOTED. CALL LIGHT IN REACH.
[2020-02-22 21:26] VITALS: BP 156/81
[2020-02-22 22:57] VITALS: BP 156/81; BMI 23.8
--- NOTE | 2020-02-23 01:05 | NUR ---
SLEEPING WITH RESPIRATIONS UNLABORED. NO DISTRESS NOTED.
--- NOTE | 2020-02-23 05:09 | NUR ---
QUIET HOURS. NO ACUTE CHANGES IN CONDITION THIS SHIFT. NO DISTRESS NOTED.
[2020-02-23 08:00] VITALS: BP 154/82
[2020-02-23 08:50] LABS: BASOPHILS 1.1 % (0-2); EOSINOPHILS 3.3 % (0-7); HEMATOCRIT 50.7 % (42.0-54.0); HEMOGLOBIN 16.7 g/dL (13.5-17.5); IMMATURE GRANULOCYTES 0.2 % (0-5); LYMPHOCYTES 26.1 % (15-50); MCHC 32.9 g/dL (31.0-37.0); MCV 94.1 fL (80.0-100.0); MEAN PLATELET VOLUME 10.3 fL (7.4-10.4); MONOCYTES 7.4 % (2-11); NEUTROPHILS 61.9 % (40-80); PLATELET COUNT 195 10x3/uL (130-400); RBC 5.39 10x6/uL (4.20-6.10); RDW 13.3 % (11.5-14.5); WBC 6.3 10x3/uL (4.8-10.8)
[2020-02-23 08:52] LABS: ANION GAP 8.6 mmol/L (8-16); CALCIUM 8.3 mg/dL (8.5-10.1); CARBON DIOXIDE 29.9 mmol/L (21.0-32.0); CREATININE - SERUM 1.2 mg/dL (0.6-1.3); POTASSIUM - SERUM 3.5 mmol/L (3.5-5.1)
--- NOTE | 2020-02-23 10:20 | NUR ---
PT HOB UP FOR BREAKFAST, DENIES PAIN OR DISCOMFORT. RESP EVEN AND UNLABORED ON ROOM AIR.CL AT SIDE
[2020-02-23 13:58] VITALS: Ht 182.9 cm; Wt 79.4 kg
--- NOTE | 2020-02-23 19:14 | NUR ---
AWAKE AND ALERT. RESTING IN BED WITH RESPIRATIONS UNLABORED. NO DISTRESS NOTED. CALL LIGHT IN REACH.
[2020-02-23 21:18] VITALS: BP 142/75
--- NOTE | 2020-02-23 23:58 | NUR ---
SLEEPING WITH RESPIRATIONS UNLABORED. NO DISTRESS NOTED.
--- NOTE | 2020-02-24 04:57 | NUR ---
QUIET HOURS. NO ACUTE CHANGES IN CONDITION THIS SHIFT. RESTING IN BED WITH RESPIRATIONS UNLABORED. NO DISTRESS NOTED.
[2020-02-24 06:49] LABS: BASOPHILS 0.8 % (0-2); EOSINOPHILS 4.3 % (0-7); HEMOGLOBIN 15.6 g/dL (13.5-17.5); IMMATURE GRANULOCYTES 0.2 % (0-5); LYMPHOCYTES 31.1 % (15-50); MCH 30.8 pg (26.0-34.0); MCHC 32.5 g/dL (31.0-37.0); MCV 94.7 fL (80.0-100.0); MEAN PLATELET VOLUME 10.5 fL (7.4-10.4); MONOCYTES 11.8 % (2-11); NEUTROPHILS 51.8 % (40-80); PLATELET COUNT 194 10x3/uL (130-400); RBC 5.07 10x6/uL (4.20-6.10); RDW 13.4 % (11.5-14.5); WBC 6.2 10x3/uL (4.8-10.8)
[2020-02-24 06:50] LABS: ANION GAP 9.2 mmol/L (8-16); CALCIUM 8.4 mg/dL (8.5-10.1); CARBON DIOXIDE 28.8 mmol/L (21.0-32.0); CREATININE - SERUM 1.1 mg/dL (0.6-1.3)
[2020-02-24 08:00] VITALS: BP 155/85
--- NOTE | 2020-02-24 08:22 | RHP ---
PATIENT: JONATHON SHEEHAN MEDICAL RECORD: [id number] ACCOUNT: [id number] LOCATION:[facility] [id number] : 39 ADMISSION DATE: 02/22/20 REHABILITATION HISTORY AND PHYSICAL EXAMINATION POST ADMISSION PHYSICIAN EXAMINATION POST ADMISSION PHYSICAL EXAMINATION AND HISTORY AND PHYSICAL ADMITTING DIAGNOSIS: Acute cerebrovascular accident. HISTORY OF PRESENT ILLNESS: The patient is a direct admit from Dr. Be's office on 02/18/2020 where he presented with with complaints of some confusion, dizziness, trouble with memory and lethargy. The patient was having difficulty with speech. He was hesitant and could not really get any words out. The patient had had an MRI on 02/18/2020 from an outside facility showing a large ischemic infarction involving the inferior cerebral hemisphere in the distribution of left middle cerebral artery. He had no intracranial hemorrhage, no mass effect, no shift. He was admitted for a neurological consult, speech therapy, PT, and rehab consult. Neurology saw this gentleman. The patient was noted to have an MRI on 02/19/2020, which confirmed he had acute to subacute left occipital temporal infarct in the territory of the posterior cerebral artery. 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 Speech therapy eval showed some mild oropharyngeal weakness, but no signs of aspiration. He demonstrated poor confrontational naming of objects in the room, less than 40% correct. He was placed on a regular diet. Speech therapy to work with him on dietary tolerance and cognition. He is living with his spouse and independent with ADLs and mobility prior to this. Currently, he is confused and disoriented. His speech is clear, but he demonstrates problems finding words. 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 He has got hypoxia with sats in the low 80s at time. He is currently on O2 2-4 liters and being titrated on this. He has also been on some uncontrolled AFib at times. He need to be placed on a monitor. He and his would both like for him to return home. COMORBIDITIES: In this patient include acute mental status changes, cognition deficits, confusion, CVA, essential hypertension, fatigue, paresis, generalized weakness, bradycardia, confusion, memory problems, lethargy, dyslipidemia, history of CVA in the past. PAST MEDICAL HISTORY: Significant for CVA in the past, dyslipidemia, hypertension, hyperlipidemia, TIA, acid reflux, prostate problems. PAST SURGICAL HISTORY: Includes some surgery on an extremity. ALLERGIES: No known drug allergies. CURRENT MEDICATIONS: Include Plavix 75 mg daily, atorvastatin 20 mg daily, Protonix 40 mg b.i.d., Aggrenox 1 cap b.i.d., and Ventolin updrafts. HABITS: No alcohol or tobacco use. FAMILY HISTORY: Noncontributory. SOCIAL HISTORY: The patient hopes to return back home and get back to his prior HISTORY AND PHYSICAL [id number] RALJONATHON LOPEZ level of function. REVIEW OF SYSTEMS: GENERAL: Does complain of weakness. EYES: Denies cold, cough, or congestion. CARDIOVASCULAR: Denies any chest pain. PHYSICAL EXAMINATION: VITAL SIGNS: Stable, afebrile. GENERAL: An elderly gentleman, in no acute distress, alert upon exam. HEENT: Normocephalic and atraumatic. Mucosa appears normal. TMs appear normal and supple. NECK: Supple, with no lymphadenopathy. LUNGS: Clear at this time. No wheezing or rales. HEART: Regular rate and rhythm. Does have a holosystolic murmur. ABDOMEN: Soft, benign, and nondistended. Positive bowel sounds times 4. EXTREMITIES: No clubbing, cyanosis or edema. NEUROLOGIC: He does have some noted confusion and weakness, especially in his right side. LABORATORY DATA: White count is 6.3, H&H of 16 and 50, and platelet count was noted to be 195. His sodium is 140, potassium 3.5, BUN and creatinine of 15 and 1.2, and blood sugar is noted to be 109. ASSESSMENT: This is an 84-year-old gentleman admitted to the rehab with a working diagnosis of cerebrovascular accident. The patient has potential to make improvement. We instituted the following multidisciplinary therapies include, but not limited to physical, occupational, respiratory, speech, nutritional services, prosthetics and orthotics. Given his complex medical condition and risks for more complications, rehabilitation services cannot be provided at a low level of care such as skilled nurse facility. PLAN: 1. Admit to [facility] for intensive inpatient therapy to include the following disciplines; A. Physical therapy to improve gait, all transfer skills and bed mobility to a modified independent level. B. Occupational therapy to improve activities of daily living. C. Case management to assist with discharge planning and placement options. D. Nutrition to assist with nutritional needs. E. Rehabilitation nursing to assist in monitoring the patient's underlying medical conditions and to assist with any type of bowel or bladder management. 2. The patient's current medication and medical care will be continued. 3. The patient will be placed on standard fall precautions. 4. The patient's estimated length of stay is approximately 7-10 days. 5. We will discuss this patient during care team staff meeting this week. Continue on home medications where appropriate. He is on multiple anticoagulants at this time including the Plavix and also the Aggrenox. We will watch for any signs of bleeding. We will watch for any signs of repeat of his AFib and we will treat appropriately during his stay. TRANSINT:[id number] Voice Confirmation ID: [id number] DOCUMENT ID: [id number] RANDEE notes whether there has been none or any medical/functional HISTORY AND PHYSICAL [id number] RALSTIN,JONATHON change since admission: - No change since prescreen. RANDEE attests patient continues to be appropriate for IRF: - Continues to be appropriate. MELBA LIZAMA MD at 0822 CC: [id number] DICTATION DATE: 02/23/20 0859 ENERGY PROJECT ENGINEER: 02/23/20 1241 [place] [address]
--- NOTE | 2020-02-24 10:09 | NUR ---
LAYING IN BED RESTING QUIETLY. IS QUIET BUT WILL ANSWER QUESTIONS MOST OF TIME. DENIES PAIN. CALL LIGHT IN REACH. SIDE RAILS UP X2. BED IN LOWEST POSITION
--- NOTE | 2020-02-24 11:20 | NUR ---
PATIENT ADMITTED TO REHAB FROM ACUTE FLOOR. DME AT HOME IS A CANE AND A WALKER. DR. DELANEY IS PATIENT PCP. DISCHARGE PLANS ARE FOR PATIENT TO RETURN HOME. WILL CONTINUE TO FOLLOW WITH PATIENT.
--- NOTE | 2020-02-24 18:52 | NUR ---
BEDSIDE REPORT COMPLETE. PT LYING IN BED. ALERT AND ORIENTED X4. DENIES ANY NEEDS OR PAIN. NO SIGNS OF ACUTE DISTRESS NOTED. CALL LIGHT WITHIN REACH. FALL PRECAUTIONS IN PLACE. CPOC
[2020-02-24 21:10] VITALS: BP 112/76
--- NOTE | 2020-02-24 23:05 | NUR ---
PT LYING IN BED ON LEFT SIDE EYES CLOSED RESTING. RR EVEN AND UNLABORED. CALL LIGHT WITHIN REACH. FALL PRECAUTIONS IN PLACE. WILL CONTINUE TO MONITOR
--- NOTE | 2020-02-25 02:41 | NUR ---
PT LYING IN BED ON RIGHT SIDE EYES CLOSED RESTING. RR EVEN AND UNLABORED. CALL LIGHT WITHIN REACH. BED ALARM ON. WILL CONTINUE TO MONITOR
--- NOTE | 2020-02-25 06:21 | NUR ---
PT LYING IN BED ON RIGHT SIDE EYES CLOSED RESTING. AM MEDS GIVEN. CALL LIGHT WITHIN REACH. PT DENIES ANY PAIN OR NEEDS. FALL PRECAUTIONS IN PLACE. CPOC
[2020-02-25 08:00] VITALS: BP 157/91
--- NOTE | 2020-02-25 15:17 | NUR ---
RESTING QUIETLY IN BED. EYES CLOSED, RESP EFFORT NON LABORED. SIDE RAILS UP X2. HAS OVERHEAD FRAME AND TRAPEZE. NO DEFICITS NOTED. CALL LIGHT IN REACH
--- NOTE | 2020-02-25 18:47 | NUR ---
BEDSIDE REPORT COMPLETE. PT LYING IN BED SUPINE WATCHING TV. ALERT AND ORIENTED X4. DENIES ANY NEEDS OR PAIN. NO SIGNS OF ACUTE DISTRESS NOTED. CALL LIGHT AND URINAL WITHIN REACH. FALL PRECAUTIONS IN PLACE. CPOC
[2020-02-25 19:00] VITALS: BP 152/87
--- NOTE | 2020-02-25 19:40 | NUR ---
PT REFUSED SHOWER STATES HE WILL DO IT NEXT TIME HE JUST GOT A SHOWER YESTERDAY AND DOES NOT FEEL HE NEEDS ONE.
--- NOTE | 2020-02-26 00:06 | NUR ---
PT LYING IN BED ON RIGHT SIDE EYES CLOSED RESTING QUIETLY. RR EVEN AND UNLABORED. CALL LIGHT AND URINAL WITHIN REACH. FALL PRECAUTIONS IN PLACE. WILL CONTINUE TO MONITOR
--- NOTE | 2020-02-26 02:27 | NUR ---
PT LYING IN BED ON LEFT SIDE EYES CLOSED RESTING QUIETLY. RR EVEN AND UNLABORED. CALL LIGHT WITHIN REACH. FALL PRECAUTIONS IN PLACE. WILL CONTINUE TO MONITOR
--- NOTE | 2020-02-26 04:35 | NUR ---
PT LYING IN BED ON RIGHT SIDE EYES CLOSED RESTING. RR EVEN AND UNLABORED. CALL LIGHT AND URINAL WITHIN REACH. FALL PRECAUTIONS IN PLACE. WILL CONTINUE TO MONITOR
[2020-02-26 05:21] LABS: EOSINOPHILS 3.5 % (0-7); HEMATOCRIT 47.6 % (42.0-54.0); HEMOGLOBIN 15.5 g/dL (13.5-17.5); IMMATURE GRANULOCYTES 0.1 % (0-5); LYMPHOCYTES 29.3 % (15-50); MCH 31.2 pg (26.0-34.0); MCHC 32.6 g/dL (31.0-37.0); MCV 95.8 fL (80.0-100.0); MEAN PLATELET VOLUME 10.2 fL (7.4-10.4); MONOCYTES 12.8 % (2-11); NEUTROPHILS 53.3 % (40-80); PLATELET COUNT 203 10x3/uL (130-400); RBC 4.97 10x6/uL (4.20-6.10); RDW 13.6 % (11.5-14.5); WBC 6.9 10x3/uL (4.8-10.8)
[2020-02-26 05:53] LABS: ANION GAP 8.4 mmol/L (8-16); CALCIUM 8.3 mg/dL (8.5-10.1); CARBON DIOXIDE 28.6 mmol/L (21.0-32.0); CREATININE - SERUM 1.3 mg/dL (0.6-1.3)
[2020-02-26 07:49] VITALS: BP 131/81
--- NOTE | 2020-02-26 15:48 | NUR ---
Nutrition Follow-up: Diet: Cardiac PO intake: ~69% average x last 9 meals; reports good appetite and denies needs Last BM: 02/23/20. WT: 175# (02/23/20) Meds and labs reviewed. Recommend continue current diet. RD following.
--- NOTE | 2020-02-26 16:41 | NUR ---
RESTING QUIETLY IN BED. EYES CLOSED. SIDE RAILS UP X2, BED IN LOWEST POSITION. NO S/S DISTRESS OR NEEDS. CALL LIGHT IN REACH
--- NOTE | 2020-02-26 19:33 | NUR ---
AWAKE AND ALERT RESTING IN BED. RESPIRAITONS UNLABORED. NO DISTRESS NOTED. CALL LIGHT IN REACH.
[2020-02-26 20:00] VITALS: BP 137/79
--- NOTE | 2020-02-27 01:37 | NUR ---
SLEEPING WITH RESPIRATIONS UNLABORED. NO DISTRESS NOTED. CALL LIGHT IN REACH.
--- NOTE | 2020-02-27 02:59 | NUR ---
CONTINUES RESTING IN BED WITH EYES CLOSED AND RESPIRATIONS UNLABORED. NO DISTRESS NOTED.
--- NOTE | 2020-02-27 06:02 | NUR ---
QUIET HOURS. NO ACUTE CHANGES IN CONDITION THIS SHIFT. RESTING IN BED WITH NO DISTRESS NOTED.
--- NOTE | 2020-02-27 07:30 | NUR ---
POSITIONED ON LEFT SIDE WITH EYES CLOSED, RESP EVEN AND UNLABORED WITH NO DISTRESS NOTED. NO APPARENT PROBLEMS OR NEEDS. SIDERAILS UP X 2, CALL LIGHT IN REACH AND BED IN LOW LOCKED POSITION.
[2020-02-27 08:14] VITALS: BP 143/84
--- NOTE | 2020-02-27 14:36 | NUR ---
I have reviewed this patient and I concur with the Shift Assessment completed by the Licensed Practical Nurse today this shift.
[2020-02-27 19:34] VITALS: BP 134/80
--- NOTE | 2020-02-27 19:38 | NUR ---
AWAKE AND ALERT. RESTING IN BED WITH RESPIRATIONS UNALBORED. NO ACUTE DISTRESS NOTED. CALL LIGHT IN REACH.
--- NOTE | 2020-02-28 00:56 | NUR ---
SLEEPING WITH NO DISTRESS NOTED. RESPIRATIONS UNLABORED.
--- NOTE | 2020-02-28 05:13 | NUR ---
QUIET HOURS. NO ACUTE CHANGES IN CONDITION THIS SHIFT. RESTING IN BED WITH RESPIRATIONS UNLABORED. NO DISTRESS NOTED.
--- NOTE | 2020-02-28 07:35 | NUR ---
A/A/OX4. RESTING IN BED AND DEINES ANY NEEDS AT PRESENT TIME. SIDERAILS UP X 2, CALL LIGHT IN REACH AND BED IN LOW LOCKED POSITION.
[2020-02-28 08:15] VITALS: BP 145/90
--- NOTE | 2020-02-28 14:52 | NUR ---
RESTING POSITIONED ON LEFT SIDE WITH EYES CLOSED. RESP EVEN AND UNLABORED. NO APPARENT PROBLEMS
--- NOTE | 2020-02-28 15:00 | NUR ---
I have reviewed this patient and I concur with the Shift Assessment completed by the Licensed Practical Nurse today this shift.
[2020-02-28 19:26] VITALS: BP 143/78
--- NOTE | 2020-02-28 19:34 | NUR ---
AWAKE AND ALERT. RESTING IN BED WITH RESPIRAITONS UNALBORED. NO DISTRESS NOTED.
--- NOTE | 2020-02-29 00:15 | NUR ---
SLEEPING WITH RESPIRATIONS UNLABORED. NO DISTRESS NOTED.
--- NOTE | 2020-02-29 05:10 | NUR ---
QUIET HOURS. NO ACUTE CHANGES IN CONDITION THIS SHIFT. RESTING IN BED WITH NO DISTRESS NOTED.
[2020-02-29 07:20] LABS: BASOPHILS 0.5 % (0-2); EOSINOPHILS 3.8 % (0-7); HEMATOCRIT 48.5 % (42.0-54.0); HEMOGLOBIN 15.6 g/dL (13.5-17.5); IMMATURE GRANULOCYTES 0.2 % (0-5); LYMPHOCYTES 27.9 % (15-50); MCHC 32.2 g/dL (31.0-37.0); MCV 96.4 fL (80.0-100.0); MEAN PLATELET VOLUME 10.4 fL (7.4-10.4); NEUTROPHILS 53.6 % (40-80); PLATELET COUNT 215 10x3/uL (130-400); RBC 5.03 10x6/uL (4.20-6.10); RDW 13.7 % (11.5-14.5); WBC 5.9 10x3/uL (4.8-10.8)
[2020-02-29 07:38] LABS: ANION GAP 9.3 mmol/L (8-16); CALCIUM 8.6 mg/dL (8.5-10.1); CARBON DIOXIDE 29.1 mmol/L (21.0-32.0); CREATININE - SERUM 1.1 mg/dL (0.6-1.3); POTASSIUM - SERUM 4.4 mmol/L (3.5-5.1)
[2020-02-29 08:00] VITALS: BP 139/86
--- NOTE | 2020-02-29 16:04 | NUR ---
RESTING QUIETLY IN BED. EYES CLOSED. NO S/S DISTRESS OR NEEDS. CALL LIGHT IN REACH. BED IN LOWEST POSITION, SIDE RAILS UP X2.
--- NOTE | 2020-02-29 18:50 | NUR ---
BEDSIDE REPORT COMPLETE. PT LYING IN BED ON LEFT SIDE. ALERT AND ORIENTED X4. DENIES ANY NEEDS OR PAIN. NO SIGNS OF ACUTE DISTRESS NOTED. CALL LIGHT WITHIN REACH. BED ALARM ON. CPOC
[2020-02-29 21:45] VITALS: BP 150/87
--- NOTE | 2020-02-29 23:11 | NUR ---
PT LYING IN BED ON RIGHT SIDE EYES CLOSED RESTING QUIETLY. RR EVEN AND UNLABORED. CALL LIGHT WITHIN REACH. BED ALARM ON. WILL CONTINUE TO MONITOR
--- NOTE | 2020-03-01 01:28 | NUR ---
PT LYING IN BED ON RIGHT SIDE EYES CLOSED RESTING QUIETLY. RR EVEN AND UNLABORED. CALL LIGHT WITHIN REACH. BED ALARM ON. CPOC
--- NOTE | 2020-03-01 04:06 | NUR ---
PT LYING IN BED ON RIGHT SIDE EYES CLOSED RESTING QUIETLY. RR EVEN AND UNLABORED. CALL LIGHT WITHIN REACH. FALL PRECAUTIONS IN PLACE. CPOC
--- NOTE | 2020-03-01 06:07 | NUR ---
PT LYING IN BED EYES CLOSED RESTING QUIETLY. RR EVEN AND UNLABORED. CALL LIGHT WITHIN REACH. FALL PRECAUTIONS IN PLACE. CPOC
[2020-03-01 08:00] VITALS: BP 142/85
--- NOTE | 2020-03-01 11:26 | NUR ---
Nutrition Follow-up: Diet: Cardiac PO intake: ~83% average x last 6 meals Last BM: 02/23/20 (per chart). Wt: 175# (02/23/20), no new weight Meds noted: miralax, lasix, MagOx. Labs noted: BUN 38(H), Cr 2.7(H), GFR 27(L), Glu 112(H) Needs new weight. Patient may need increased bowel regimen. Recommend continue current diet. RD following.
--- NOTE | 2020-03-01 13:33 | NUR ---
RESTING QUIETLY IN BED. DENIES NEEDS OR C/O. IS ORIENTED X4 BUT WHEN HANDED AN OBJECT HE CANT FIGURE OUT WHAT TO DO WITH IT....CALL LIGHT IN REACH
--- NOTE | 2020-03-01 18:43 | NUR ---
BEDSIDE REPORT COMPLETE. PT LYING IN BED ON RIGHT SIDE EYES CLOSED RESTING. EASILY AROUSED WITH VERBAL STIMULI. DENIES ANY NEEDS OR PAIN. NO SIGNS OF ACUTE DISTRESS NOTED. CALL LIGHT WITHIN REACH. BED ALARM ON. CPOC
[2020-03-01 21:55] VITALS: BP 133/75
--- NOTE | 2020-03-01 23:24 | NUR ---
PT LYING IN BED ON LEFT SIDE EYES CLOSED RESTING QUIETLY. RR EVEN AND UNLABORED. CALL LIGHT WITHIN REACH. BED ALARM ON. WILL CONTINUE TO MONITOR
--- NOTE | 2020-03-02 01:17 | NUR ---
PT LYING IN BED ON RIGHT SIDE EYES CLOSED RESTING. RR EVEN AND UNLABORED. CALL LIGHT WITHIN REACH. BED ALARM ON. CPOC
--- NOTE | 2020-03-02 04:50 | NUR ---
PT LYING IN BED ON RIGHT SIDE EYES CLOSED RESTING. RR EVEN AND UNLABORED. CALL LIGHT WITHIN REACH. BED ALARM ON. CPOC
[2020-03-02 07:27] LABS: BASOPHILS 1.1 % (0-2); EOSINOPHILS 3.2 % (0-7); HEMATOCRIT 48.8 % (42.0-54.0); HEMOGLOBIN 15.9 g/dL (13.5-17.5); IMMATURE GRANULOCYTES 0.2 % (0-5); LYMPHOCYTES 28.3 % (15-50); MCH 31.1 pg (26.0-34.0); MCHC 32.6 g/dL (31.0-37.0); MCV 95.5 fL (80.0-100.0); MEAN PLATELET VOLUME 10.5 fL (7.4-10.4); MONOCYTES 13.7 % (2-11); NEUTROPHILS 53.5 % (40-80); PLATELET COUNT 217 10x3/uL (130-400); RBC 5.11 10x6/uL (4.20-6.10); RDW 13.8 % (11.5-14.5); WBC 5.6 10x3/uL (4.8-10.8)
[2020-03-02 07:36] LABS: ANION GAP 9.6 mmol/L (8-16); CALCIUM 8.5 mg/dL (8.5-10.1); CARBON DIOXIDE 27.5 mmol/L (21.0-32.0); CREATININE - SERUM 1.2 mg/dL (0.6-1.3); POTASSIUM - SERUM 4.1 mmol/L (3.5-5.1)
[2020-03-02 08:42] VITALS: BP 119/74
--- NOTE | 2020-03-02 09:51 | NUR ---
GET UP BY SELF, BED ALARM GOES OFF, STAFF REMINDS PT NOT TO GET UP BY SELF BUT HE DOES OFTEN. HE DENIES PAIN OR NEEDS. HE IS ORIENTED X4 BUT SEEMS TO HAVE DIFFICULTY WITH RECALL AND COGNITION.
--- NOTE | 2020-03-02 12:59 | NUR ---
LAYING IN BED RESTING QUIETLY. NO S/S DISTRESS. CALL LIGHT IN REACH
--- NOTE | 2020-03-02 16:20 | NUR ---
CARE TEAM MEETING: PATIENT IS DOING WELL IN THERAPY. HE IS DISCHARGING HOME IN THE AM WITH HIS SPOUSE. WILL CONTINUE TO FOLLOW WITH PATIENT.
--- NOTE | 2020-03-02 20:12 | NUR ---
AWAKE AND ALERT. RESTING IN BED WITH RSPIRAITONS UNLABORED. NO DISTRESS NOTED. CALL LIGHT IN REACH.
[2020-03-02 21:16] VITALS: BP 138/80
--- NOTE | 2020-03-03 00:35 | NUR ---
RESTING IN BED WITH RESPIRATIONS UNLABORED.
--- NOTE | 2020-03-03 03:11 | NUR ---
RESTING IN BED WITH RESPIRATIONS UNLABORED. NO DISTRESS NOTED.
--- NOTE | 2020-03-03 05:06 | NUR ---
QUIET HOURS. NO ACUTE CHANGES IN CONDITION THIS SHIFT. RESTING IN BED WITH NO DISTRESS NOTED.
--- NOTE | 2020-03-03 07:17 | NUR ---
POSITIONED ON RIGHT SIDE WITH EYES CLOSED. RESP EVEN AND UNLABORED ON RA. SIDERAILS UP X 2, CALL LIGHT IN REACH AND BED IN LOW LOCKED POSITION.
[2020-03-03 07:39] VITALS: BP 102/65
--- NOTE | 2020-03-03 09:25 | NUR ---
PT AND INFORMED DR. LIZAMA HAS ORDERED A CT SCAN DUE TO C/O DIZZINESS. WILL REVIEW DISCHARGE ORDERS FOLLOWING RESULTS RECEIVED.
--- NOTE | 2020-03-03 10:37 | NUR ---
TO RADIOLOGY VIA W/C FOR CT SCAN
--- NOTE | 2020-03-03 12:06 | NUR ---
PATIENT DISCHARGED HOME WITH FAMILY. PATIENT DECLINES HOME HEALTH AND ANY DME NEEDS. CLEMENTINE SINGED, IMM SERVED AND EXPLAINED, ONE GIVEN TO PATIENT AND ONE FILED IN CHART. DR. DELANEY/ WESLEY RODRIGUEZ 03/07/20 @ 11:15. DISCHARGE INSTRUCTIONS FAXED TO PCP AND REVIEWED WITH PATIENT AND SPOUSE PER PRIMARY NURSE.
== END 2020-03-03 11:48 | disposition home or self-care (01) | DRG 56 ==
LOC: D.REHAB 18:39
PROVIDERS: ADMIT Emergency Medicine; ATTEND Emergency Medicine
DX: I69.30 Unspecified sequelae of cerebral infarction (principal); I63.9 Cerebral infarction, unspecified; R47.01 Aphasia; F09 Unspecified mental disorder due to known physiological condition; I10 Essential (primary) hypertension; R53.83 Other fatigue; R53.1 Weakness; E78.5 Hyperlipidemia, unspecified; R00.1 Bradycardia, unspecified; R41.0 Disorientation, unspecified; K21.9 Gastro-esophageal reflux disease without esophagitis; I48.91 Unspecified atrial fibrillation; R09.02 Hypoxemia; G83.21 Monoplegia of upper limb affecting right dominant side; M51.36 Other intervertebral disc degeneration, lumbar region

== ENCOUNTER 2020-03-15 16:09 | Emergency (ER) | payer MEDICARE, BC ==
[~2020-03-15] VITALS: Ht 182.9 cm; Wt 79.5 kg
[2020-03-15 16:21] VITALS: BP 170/71; Ht 182.9 cm; Wt 79.5 kg
[2020-03-15 17:06] LABS: BASOPHILS 0.5 % (0-2); EOSINOPHILS 3.4 % (0-7); HEMATOCRIT 49.3 % (42.0-54.0); HEMOGLOBIN 16.1 g/dL (13.5-17.5); IMMATURE GRANULOCYTES 0.2 % (0-5); MCHC 32.7 g/dL (31.0-37.0); MONOCYTES 11.6 % (2-11); NEUTROPHILS 51.3 % (40-80); PLATELET COUNT 202 10x3/uL (130-400); RBC 5.19 10x6/uL (4.20-6.10); RDW 13.7 % (11.5-14.5); WBC 5.6 10x3/uL (4.8-10.8)
[2020-03-15 17:23] LABS: ANION GAP 10.3 mmol/L (8-16); CALCIUM 8.2 mg/dL (8.5-10.1); CARBON DIOXIDE 26.4 mmol/L (21.0-32.0); CREATININE - SERUM 1.3 mg/dL (0.6-1.3); POTASSIUM - SERUM 3.7 mmol/L (3.5-5.1)
[2020-03-15 17:28] LABS: ALBUMIN 3.4 g/dL (3.4-5.0); BILIRUBIN - TOTAL 0.59 mg/dL (0.2-1.3); PROTEIN - SERUM 6.6 g/dL (6.4-8.2)
== END 2020-03-15 19:25 | disposition home or self-care (01) ==
LOC: D.ER 16:09
PROVIDERS: Family Medicine
DX: Z71.1 Person with feared health complaint in whom no diagnosis is made (principal); Z86.73 Personal history of transient ischemic attack (TIA), and cerebral infarction without residual deficits; K21.9 Gastro-esophageal reflux disease without esophagitis